=== PATIENT | female | born 1955 | race Caucasian/White ===

== ENCOUNTER 2022-03-27 15:51 | Inpatient (IN) | payer MEDICARE, OTHER ==
[~2022-03-27] VITALS: Ht 165.1 cm; Wt 104.3 kg
[2022-03-27] MEDS ORDERED: ADENOSINE 6 MG/2 ML VIAL ONE ×3 (15:55→16:50)
--- NOTE | 2022-03-27 15:58 | NUR ---
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 PT IS A&OX4. ATTACHED TO MONITOR, HEART RATE IS ELEVATED, DR REDD AT BEDSIDE. HOLDING ADENOSINE. AWAITING MD ORDERS.
[2022-03-27 16:26] LABS: BASOPHILS % (AUTO) 0.6 % (0.0-2.0); EOSINOPHILS % (AUTO) 1.9 % (0.0-6.0); HEMATOCRIT 41 % (33-45); HEMOGLOBIN 13.8 g/dL (11.5-14.8); LYMPHOCYTES # (AUTO) 1.2 K/uL (0.8-4.8); LYMPHOCYTES % (AUTO) 24.4 % (20.0-44.0); MEAN CORPUSCULAR HGB CONC 34 g/dl (31.0-36.0); MEAN CORPUSCULAR VOLUME 90 fL (82-100); MONOCYTES # (AUTO) 0.6 K/uL (0.1-1.30); NEUTROPHILS % (AUTO) 61.1 % (43.0-81.0); PLATELET COUNT (AUTO) 187 K/uL (150-450); RED BLOOD CELL COUNT(AUTO) 4.55 MIL/uL (4.0-5.2); WHITE BLOOD COUNT (AUTO) 4.9 K/uL (4.3-11.0)
[2022-03-27] MEDS ORDERED: IV NS 0.9% 1,000 ML BAG IV ONE (16:30)
[2022-03-27] MEDS ORDERED: ADENOSINE 6 MG/2 ML VIAL IVP ONE (16:30)
[2022-03-27 16:44] LABS: CALCIUM, SERUM 8.7 mg/dL (8.5-10.1); CARBON DIOXIDE 28 mmol/L (21-32); CHLORIDE 103 mmol/L (98-107); CREATININE 0.9 mg/dL (0.6-1.3); GLUCOSE 122 mg/dL (74-106); POTASSIUM 3.6 mmol/L (3.5-5.1); SODIUM SERUM 139 mmol/L (136-145); UREA NITROGEN, BLOOD 21 mg/dL (7-18)
[2022-03-27] MEDS ORDERED: DILTIAZEM HCL 25 MG IV ONE (16:58)
[2022-03-27] MEDS ORDERED: AMIODARONE 150 MG in IV D5W 100 ML IV ONE (17:00)
[2022-03-27] MEDS ORDERED: AMIODARONE 450 MG in IV D5W 250 ML IV ONE (17:00)
[2022-03-27] MEDS ORDERED: DILTIAZEM HCL 50 MG IV IV ONE (17:00)
[2022-03-27] MEDS ORDERED: CHOL100043 PO (17:20)
[2022-03-27] MEDS ORDERED: MAGN400T26 PO (17:20)
[2022-03-27] MEDS ORDERED: AMLO-212 PO (17:20)
[2022-03-27] MEDS ORDERED: OMEG-167 PO (17:20)
--- NOTE | 2022-03-27 17:22 | NUR ---
COVID TEST COLLECTED AND SENT
--- NOTE | 2022-03-27 17:45 | NUR ---
PANEL ON-CALL PAGED AGAIN
[2022-03-27] MEDS ORDERED: APIXABAN 5 MG TABLET PO SCH (18:30)
--- NOTE | 2022-03-27 19:10 | NUR ---
PATIENT TAKEN OFF AMIODARONE DRIP. PT CONNECTED TO CARDIAC AND POX MONITOR. VSS, A/O X 4 , RR EVEN AND UNLABORED, NO SOB NOTED.
[2022-03-27] MEDS ORDERED: APIXABAN 5 MG TABLET ONE (19:46)
--- NOTE | 2022-03-27 20:23 | NUR ---
[phone] NESSA DTR [phone]
[2022-03-27] MEDS ORDERED: AMIODARONE HCL 200 MG TABLET PO ONE (20:30)
[2022-03-27] MEDS ORDERED: AMIODARONE HCL 200 MG TABLET ONE (20:32)
--- NOTE | 2022-03-27 20:43 | NUR ---
REPORT GIVEN TO ANILA FENG
--- NOTE | 2022-03-27 21:00 | NUR ---
TELERN RECEIVED FROM ER VIA RAÚL A 66 Y/O FEMALE DIAGNOSIS OF AFIB WITH RVR. STATED WAS SENT TO ER BY HER OWN WARRANT CLERK FOR FURTHER CARDIAC WORKUP. ALERT/ORIENTED X4 ICELANDIC SPEAKING UNDERSTANDS BASIC SPANISH. ORIENTED TO ROOM FACILITIES, CALL LIGHT USE REVIEWED WITH PATIENT APPEARS TO UNDERSTAND. DENIES ANY PAIN OR DISCOMFORTS. V/S STABLE SR ON THE MONITOR. CONTINUED MONITORING
--- NOTE | 2022-03-27 21:08 | NUR ---
PT TRANSFERRED UNDER ACLS
[2022-03-27] MEDS ORDERED: ACETAMINOPHEN 325 MG TABLET PO PRN (21:30)
[2022-03-27] MEDS ORDERED: ONDANSETRON HCL/PF 4 MG/2 ML VIAL IVP PRN (21:30)
[2022-03-27] MEDS ORDERED: Z GUARD REMEDY 4 OZ OINT TP PRN (21:30)
[2022-03-27 22:00] VITALS: BP 140/83
[2022-03-27 22:12] LABS: THYROID STIMULATING HORMONE 3.645 uIU/mL (0.358-3.74)
--- NOTE | 2022-03-27 22:18 | NUR ---
TELERN INFORMED DR. Shayna UP TROP RESULTS OF 451 FROM 117. ORDERS RECEIVED. REMAINS SR ON THE MONITOR.
[2022-03-27] MEDS ORDERED: ASPIRIN 81 MG TAB.CHEW PO ONE (22:30)
[2022-03-28 01:42] VITALS: BP 130/78
[2022-03-28 05:24] VITALS: BP 143/76
[2022-03-28 06:27] LABS: BASOPHILS % (AUTO) 0.7 % (0.0-2.0); EOSINOPHILS % (AUTO) 2.4 % (0.0-6.0); HEMATOCRIT 38 % (33-45); HEMOGLOBIN 12.7 g/dL (11.5-14.8); LYMPHOCYTES # (AUTO) 1.4 K/uL (0.8-4.8); LYMPHOCYTES % (AUTO) 47.6 % (20.0-44.0); MEAN CORPUSCULAR HGB CONC 34 g/dl (31.0-36.0); MEAN CORPUSCULAR VOLUME 90 fL (82-100); MONOCYTES # (AUTO) 0.4 K/uL (0.1-1.30); MONOCYTES % (AUTO) 14.9 % (2.0-12.0); NEUTROPHILS % (AUTO) 34.4 % (43.0-81.0); PLATELET COUNT (AUTO) 150 K/uL (150-450); RED BLOOD CELL COUNT(AUTO) 4.18 MIL/uL (4.0-5.2); WHITE BLOOD COUNT (AUTO) 2.9 K/uL (4.3-11.0)
--- NOTE | 2022-03-28 06:36 | NUR ---
TELERN V/S STABLE, WAS YOUSIF AT RATE 58. ASYMPTOMATIC. NO DISCOMFORTS VERBALIZED. CONTINUED MONITORING
[2022-03-28 06:40] LABS: CALCIUM, SERUM 8.5 mg/dL (8.5-10.1); CREATININE 0.7 mg/dL (0.6-1.3); PHOSPHORUS 3.6 mg/dL (2.5-4.9); POTASSIUM 3.6 mmol/L (3.5-5.1)
--- NOTE | 2022-03-28 07:25 | NUR ---
ANILA KRUGER FROM LAB CALLED AND GAVE LAB RESULT OF TROPONIN 429 AT 0724 PM.
--- NOTE | 2022-03-28 07:30 | NUR ---
PRINTER TECHNICIAN OPENING NOTES RECEIVED PATIENT AWAKE IN BED. PATIENT IS ALERT AND ORIENTED TIMES 4. NO PAIN NOTED. NO SOB NOTED. NO DISTRESS NOTED. ON TELE MONITOR READING SR. IV ACCESS ON THE RIGHT AC G#18 INTACT. NO PAIN NOTED. NO DISTRESS NOTED. ALL SAFETY MEASURES IN PLACE. BED LOCKED IN THE LOWEST POSITION. CALL LIGHT AND TABLE IN EASY REACH. SIDE RAILS UP TIMES 2. WILL CONTINUE TO MONITOR.
--- NOTE | 2022-03-28 07:50 | NUR ---
RN NOTES REPORTED THE LAB RESULT OF TROPONIN 429 TO TAB LUCIO AT [address] BRUCE WAS DOING ROUNDS AROUND 0800 INFORMED THE RESULTS ALSO. HE STATED HE ALREADY KNOWS ABOUT THE RESULT.
[2022-03-28] MEDS ORDERED: MAGNESIUM OXIDE 400 MG TABLET PO SCH (09:00)
[2022-03-28] MEDS ORDERED: ATORVASTATIN 10 MG TABLET PO SCH (09:00)
[2022-03-28] MEDS ORDERED: APIXABAN 5 MG TABLET PO SCH (09:00)
[2022-03-28] MEDS ORDERED: AMIODARONE HCL 200 MG TABLET PO SCH (09:00)
[2022-03-28] MEDS ORDERED: CARVEDILOL 6.25 MG TABLET PO SCH (09:00)
[2022-03-28] MEDS ORDERED: AMLODIPINE BESYLATE 5 MG TABLET PO SCH (09:00)
[2022-03-28] MEDS ORDERED: NITROGLYCERIN 0.4 MG/TAB BOTTLE ONE (12:19)
[2022-03-28] MEDS ORDERED: METOPROLOL TARTRATE INJ 5 MG/5 ML AMPUL ONE (12:19)
[2022-03-28] MEDS ORDERED: IOHEXOL-350 100 ML VIAL IV ONE ×2 (12:19→13:21)
[2022-03-28 12:20] LABS: BASOPHILS % (MANUAL) 0 % (0.0-2.0); EOSINOPHILS % (MANUAL) 2 % (0-4); LYMPHOCYTES % (MANUAL) 45 % (16-48); MONOCYTES % (MANUAL) 14 % (0-11.0); NEUTROPHILS % (MANUAL) 39 (42-76)
[2022-03-28] MEDS ORDERED: CT SWABBABLE VALVE TRANS SET 1 EA INFUS.SET MC ONE (12:20)
[2022-03-28] MEDS ORDERED: IV NS 0.9% 250 ML IV ONE (12:20)
[2022-03-28 13:11] VITALS: BP 125/66
[2022-03-28] MEDS ORDERED: METOPROLOL TARTRATE INJ 5 MG/5 ML AMPUL IVP PRN (13:30)
[2022-03-28] MEDS ORDERED: NITROGLYCERIN 0.4 MG/TAB BOTTLE SL ONE (13:30)
[2022-03-28] MEDS ORDERED: CARV6.252 PO (15:35)
[2022-03-28] MEDS ORDERED: ATOR10TA PO (15:35)
--- NOTE | 2022-03-28 16:00 | NUR ---
RN NOTES WHILE PATIENT WAS GETTING READY FOR DISCHARGE SHE REPORTED AT 1600 SWOLLEN RIGHT ARM. SHE WAS IN CT ANGIO OF THE HEART WITH 3D IMAGE AROUND 1330. THE DAUGHTER AT BED SIDE SHE CALLED DR SHRADDHA PAINTER AND THEY STATED THAT IT WAS ONLY FLUID INFILTRATED AND NOT A CONTRAST. THE NURSE PAINTER ASKED THE PATIENT IN 2 DAYS IF THE SWOLLEN HAND NOT GETTING BETTER , CALL DR LLANES OFFICE. EDUCATE THE PATIENT TO ELEVATE THE ARM, AND PUT ICE PACK ON THE ARM. AND INFORM DR IN OFFICE IF IT GETS WORSE. PATIENT AND DAUGHTER VERBALIZED UNDERSTANDING. PICTURE OF THE ARM TAKEN AND KEPT IN THE CHART.
--- NOTE | 2022-03-28 16:30 | NUR ---
RN NOTES DISCHARGE PATIENT IN STABLE CONDITION WITH STABLE VITAL SIGNS. NO PAIN NOTED. NO SOB NOTED NO DISTRESS NOTED. ALL THE DISCHARGE INSTRUCTIONS GIVEN TO THE PATIENT AND THE DAUGHTER. PATIENT VERBALIZED UNDERSTANDING. ALL THE BELONGINGS ACCOUNTED AND SIGNED FOR. VITAL SIGNS IN STABLE CONDITION. ID REMOVED . IV SITE ON THE LEFT AC REMOVED. COVERED WITH DRY DRESSING , NO BLEEDING NOTED. WHEELED THE PATIENT TO THE LOBBY. DAUGHTER AYSE WITH THE PATIENT. PATIENT LEFT HOSPITAL AT 1630 IN STABLE CONDITION WITH STABLE VITAL SIGNS. MD AND CHARGE NURSE AWARE OF THE DISCHARGE.
== END 2022-03-28 16:25 | disposition home or self-care (01) | DRG 280 ==
LOC: ER 16:05 → TELE 19:54
PROVIDERS: ADMIT Nurse Practitioner Acute Care; ATTEND Registered Nurse
DX: I48.91 Unspecified atrial fibrillation (principal); N17.0 Acute kidney failure with tubular necrosis; I21.A1 Myocardial infarction type 2; D68.69 Other thrombophilia; I47.1 Supraventricular tachycardia; E03.9 Hypothyroidism, unspecified; Z87.891 Personal history of nicotine dependence; G47.33 Obstructive sleep apnea (adult) (pediatric); E66.01 Morbid (severe) obesity due to excess calories; I10 Essential (primary) hypertension; Z20.822 Contact with and (suspected) exposure to COVID-19; T46.2X5A Adverse effect of other antidysrhythmic drugs, initial encounter; Y92.89 Other specified places as the place of occurrence of the external cause; I95.9 Hypotension, unspecified; Z68.38 Body mass index [BMI] 38.0-38.9, adult
CPT/HCPCS: 36415; 71045-TC; 75574; 80048-TC; 80061-TC; 83735-TC; 84100-TC; 84443-TC; 84484-TC; 85025-TC; 93307-TC; C9803; G0378; J0153; J0282; J3490; J7030; J7050; J7060; Q9967